=== PATIENT | female | born 1995 | race Hispanic/Latino ===

== ENCOUNTER 2016-04-13 17:00 | Emergency (ER) | payer SELFPAY ==
--- NOTE | 2016-04-13 18:55 | Emergency Department Report ---
Chief Complaint: Vaginal Bleeding Stated Complaint: / BLEEDING / CRAMPING Time Seen by Provider: 04/13/16 18:51 - HPI History of Present Illness: 20y/o female complain of heavy bleeding .pt state LMP Nov.pt had confirm through [facility] .pt state she has been through 3 tampon since 5p.pt state heavy vaginal bleeding at present . - ROS Review of Systems: per HPI - Exam Vital Signs: Vital Signs 04/13/16 18:10 Temperature 98.0 F Pulse Rate 81 Respiratory 16 Rate Blood Pressure 126/74 O2 Sat by Pulse 100 Oximetry Physical Exam: GENERAL: The patient is well-developed and well-nourished. Patient is in NAD. HENT: Normocephalic. Atraumatic. Patient has moist mucous membranes. Throat: No erythema, swelling or exudates. EYES: Extraocular motions are intact, PERRL NECK: Supple. No meningitic signs are noted. There is no adenopathy noted. CHEST/LUNGS: Clear to auscultation bilaterally. No wheezing, rales or rhonchi noted. There is no respiratory distress noted. HEART/CARDIOVASCULAR: Regular rate and rhythm. Normal S1 S2. No murmurs, rubs , clicks, or gallops. ABDOMEN: Abdomen is soft, nontender.. Bowel sounds normoactive. There is no abdominal distention. Negative rebound tenderness. : Deferred. SKIN: There is no rash. There is no edema. There is no diaphoresis. NEURO: The patient is A&Ox3. The patient has no focal neurologic deficits. MUSCULOSKELETAL: There is no tenderness or deformity. There is no limitation range of motion. PSYCH: Pt has appropriate mood and affect. MSE screening note: Focused history and physical exam performed. Due to findings the following was ordered: ED Disposition for MSE Condition: Stable
[2016-04-13 19:34] LABS: Basophils % (Auto) 0.3 % (0.0-1.8); Eosinophils % (Auto) 1.9 % (0.0-4.3); Hematocrit 36.3 % (30.3-42.9); Hemoglobin 12.3 gm/dl (10.1-14.3); Mean Corpuscular HGB Conc 34 % (30-34); Mean Corpuscular Hemoglobin 32 pg (28-32); Mean Corpuscular Volume 94 fl (79-97); Platelet Count 201 K/mm3 (140-440); Red Blood Count 3.86 M/mm3 (3.65-5.03); Red Cell Distribution Width 12.7 % (13.2-15.2); White Blood Count 9.1 K/mm3 (4.5-11.0)
[2016-04-13 19:52] LABS: Blood Urea Nitrogen 9 mg/dL (7-17); Calcium 8.5 mg/dL (8.4-10.2); Carbon Dioxide 24 mmol/L (22-30); Chloride 104.3 mmol/L (98-107); Glucose 91 mg/dL (65-100); Potassium 3.5 mmol/L (3.6-5.0); Sodium 142 mmol/L (137-145)
[2016-04-13 19:54] LABS: Anion Gap 17 mmol/L
--- NOTE | 2016-04-14 06:49 | Emergency Department Report ---
HPI - General Chief Complaint: Vaginal Bleeding Time Seen by Provider: 04/14/16 06:32 - HPI HPI: Chief complaint: Vaginal bleeding HPI: Patient states she had her last menstrual period the end of February and had a positive test. Patient has not had an ultrasound this before today. Patient states she started bleeding last night and passing clots. Patient states in the waiting room after her ultrasound she passed a sac. She collected this and it will be sent to pathology for POC evaluation. Patient is having slight bleeding now and minimal cramping. Mode of arrival: private car Source: Patient Began: Yesterday evening Duration: One day Context: Patient is 3 para 2 Quality: Cramping Severity: 7 out of 10 Improved with: Nothing Worsened with: Nothing Associated signs and symptoms: See above. No lightheadedness or vomiting ED Past Medical Hx - Past Medical History Additional medical history: anemia WITH - Surgical History Hx Cholecystectomy: Yes - Social History Smoking Status: Current Every Day Smoker Substance Use Type: None - Medications Home Medications: Home Medications Medication Instructions Recorded Confirmed Last Taken Type Ibuprofen [Motrin 600 MG tab] 600 mg PO Q8H PRN #20 tablet 04/14/16 Unknown Rx ED Review of Systems ROS: Stated complaint: / BLEEDING / CRAMPING Other details as noted in HPI ROS Constitutional: No fever ENT: No uri symptoms Cardiovascular: No chest pain Respiratory: No sob or cough GI: No nausea vomiting or diarrhea : No dysuria frequency or urgency, Skin: No rash Neuro: No focal weakness or numbness Psych: No depression Fede/lymph: No edema Physical Exam - Physical Exam Vital Signs: Vital Signs 04/13/16 04/14/16 18:10 05:09 Temperature 98.0 F 97.8 F Pulse Rate 81 80 Respiratory 16 20 Rate Blood Pressure 126/74 Blood Pressure 149/93 [Left] O2 Sat by Pulse 100 99 Oximetry Physical Exam: GENERAL: The patient is well-developed well-nourished . HEENT: Normocephalic. Atraumatic. Extraocular motions are intact. Patient has moist mucous membranes. NECK: Supple. No meningitic signs are noted. There is no adenopathy noted. CHEST/LUNGS: Clear to auscultation. There is no respiratory distress noted. HEART/CARDIOVASCULAR: Regular. There is no tachycardia. There is no gallop rub or murmur. ABDOMEN: Abdomen is soft, nontender. Patient has normal bowel sounds. There is no abdominal distention. : Os closed minimal bleeding. SKIN: There is no rash. There is no edema. There is no diaphoresis. NEURO: The patient is awake, alert, and oriented. The patient is cooperative. The patient has no focal neurologic deficits. The patient has normal speech. MUSCULOSKELETAL: There is no tenderness or deformity. There is no limitation range of motion. There is no evidence of acute injury. ED Course Vital Signs 04/13/16 04/14/16 18:10 05:09 Temperature 98.0 F 97.8 F Pulse Rate 81 80 Respiratory 16 20 Rate Blood Pressure 126/74 Blood Pressure 149/93 [Left] O2 Sat by Pulse 100 99 Oximetry - Reevaluation(s) Reevaluation #1: 04/14/16 06:48 Patient given a RhoGAM shot ED Medical Decision Making - Lab Data Result diagrams: 04/13/16 19:13 04/13/16 19:13 Laboratory Tests 04/13/16 04/13/16 04/13/16 19:13 19:13 19:20 Hgb 12.3 Hct 36.3 Plt Count 201 HCG, Quant 48056 H Blood Type O NEGATIVE Antibody Screen Negative - Radiology Data Radiology results: report reviewed (ultrasound shows a sac like structure in the lower uterine segment with no structures. No abnormal adnexal masses noted.) Critical care attestation.: If time is entered above; I have spent that time in minutes in the direct care of this critically ill patient, excluding procedure time. ED Disposition Clinical Impression: Spontaneous miscarriage Disposition: DISCHARGED TO HOME OR SELFCARE Is pt being admited?: No Does the pt Need Aspirin: No Condition: Stable Instructions: Spontaneous Miscarriage (ED) Prescriptions: Ibuprofen [Motrin 600 MG tab] 600 mg PO Q8H PRN #20 tablet PRN Reason: Pain Referrals: ROSANNA JAUREGUI MD [Staff Physician] - 3-5 Days (Dr. Jauregui is an [employer] for you to follow-up with next week) Time of Disposition: 07:44
[2016-04-14 08:04] VITALS: BP 102/40
--- NOTE | 2016-04-17 08:24 | Ultrasound Report ---
FINAL REPORT EXAM: US OB < = 14 WEEKS FETUS HISTORY: Vaginal bleeding TECHNIQUE: Transabdominal ultrasound pelvis PRIORS: None. FINDINGS: The uterus measures 9.74 x 5.7 x 6.6 centimeters. Endometrial thickness is 0.62 centimeters. Within the lower uterine segment there is an elongated ovoid saclike structure with echogenic hernandez. No structures identified. No abnormal adnexal mass identified. Right ovary is 3.3 x 1.7 x 2.4 centimeters Left ovary is 2.9 x 1.5 x 2.1 centimeters. No evidence for free fluid within the cul-de-sac. IMPRESSION: Sac-like structure within the lower uterus. No structures identified. Could reflect incomplete AB in progress versus occult ectopic . Continued followup recommended
== END 2016-04-14 08:05 | disposition home or self-care (01) ==
LOC: ED 17:00
DX: O03.9 Complete or unspecified spontaneous abortion without complication (principal); O99.331 Smoking (tobacco) complicating pregnancy, first trimester; Z3A.01 Less than 8 weeks gestation of pregnancy; Z90.49 Acquired absence of other specified parts of digestive tract
CPT/HCPCS: 36415; 76801; 80048; 84702; 85025; 86850; 86900; 86901; 88305; 99284; J2790

== ENCOUNTER 2018-07-22 20:05 | Inpatient (IN) | payer MEDICAID, OTHER ==
[2018-07-22] MEDS ORDERED: LACTATED RINGERS 1,000 ML IV ONE (21:01)
[2018-07-22 21:26] LABS: Bacteria,Urine 1+ /HPF (Negative); Bilirubin,Urine NEG (Negative); Blood,Urine MOD (Negative); Color,Urine Yellow (Yellow); Mucus,Urine FEW /HPF
[2018-07-22] MEDS ORDERED: COLACE PO PRN (23:02)
[2018-07-22] MEDS ORDERED: ZOFRAN IV PRN (23:02)
[2018-07-22] MEDS ORDERED: TYLENOL PO PRN (23:02)
[2018-07-22] MEDS ORDERED: ROCEPHIN/NS 1 GM/50 ML 1 GM/50 ML BAG IV SCH (23:30)
--- NOTE | 2018-07-22 23:52 | Ultrasound Report ---
PROCEDURE: US OB LIMITED TECHNIQUE: Real-time limited sonographic examination was performed for evaluation of amniotic fluid index for each fetus with image documentation (1 or more fetuses). HISTORY: franci COMPARISONS: None . FINDINGS: There is a single fetus in a vertex presentation. heart activity is identified at a rate 141 be ats from minute. The 4 quadrant amniotic fluid volume is 11.5 cm. No further measurements are obtaine d on this study. IMPRESSION: Single fetus in a vertex presentation. 4 quadrant amniotic fluid volume is 11.5 cm. This document is electronically signed by Shira Patten DO., July 22 2018 11:50:37 PM ET
--- NOTE | 2018-07-22 23:53 | Ultrasound Report ---
PROCEDURE: US OB BPP WO NON-STRESS TECHNIQUE: Sonographic evaluation for breathing, movement, tone, and amniotic flui d volume was performed. HISTORY: decreased movement COMPARISONS: None . FINDINGS: FETUS Amniotic fluid volume Normal-score 2. At least one vertical pocket >2 cm or more in vertical axis . breathing: Normal-score 2 . movement: Normal-score 2 . tone: Normal-score 2 . Score: 8 of 8 . IMPRESSION: Normal biophysical profile . This document is electronically signed by Shira Patten DO., July 22 2018 11:51:17 PM ET
[2018-07-23] MEDS: LACTATED RINGERS 1,000 ML IV SCH ×2 (00:12→15:09)
--- NOTE | 2018-07-23 00:36 | History and Physical Report ---
History of Present Illness Date of examination: 07/22/18 Date of admission: 07/22/18 23:21 Chief complaint: SIUP at 36 weeks and 6 days gestation with fever, back pain History of present illness: Patient is a 23 year old , LMP 11/06/17, EDC 08/13/18 at 36 weeks and 6 days who presented to triage complaining of having cough for 2 days, and developed a fever of 100.5F, chills, back pain, nausea earlier today. She denies any contractions, fluid leakage or bleeding. She reports decreased movement. She denies any chest pain or shortness of breath. She denies any sick contact at home. She did not get any flu shot this season. In triage, her temp was 99F. tracing was CAT1. Cervix closed. She was a late entry to [facility] at 22 weeks. Past History Past Surgical History: no surgical history Family/Genetic History: none Social history: no significant social history - Obstetrical History Expected Date of Delivery: 08/13/18 Actual Gestation: 37 Week(s) 0 Day(s) : 5 Para: 3 Number of Living Children: 3 Medications and Allergies Allergies Allergy/AdvReac Type Severity Reaction Status Date / Time No Known Allergies Allergy Verified 07/22/18 21:04 Active Meds: Active Medications Acetaminophen (Tylenol) 1,000 mg PO Q6H PRN PRN Reason: Pain MILD(1-3)/Fever >100.5/JALLOH Last Admin: 07/23/18 00:10 Dose: 1,000 mg Documented by: Docusate Sodium (Colace) 100 mg PO Q12H PRN PRN Reason: Constipation Lactated Ringer's (Lactated Ringers) 1,000 mls @ 125 mls/hr IV DIRECT MAXINE Last Admin: 07/23/18 00:12 Dose: 125 mls/hr Documented by: Ceftriaxone Sodium (Rocephin/Ns 1 Gm/50 Ml) 1 gm in 50 mls @ 100 mls/hr IV Q24HR MAXINE; Protocol Multivitamins/Iron/Calcium ( Vitamin) 1 each PO QDAY MAXINE Ondansetron HCl (Zofran) 4 mg IV Q6H PRN PRN Reason: Nausea And Vomiting Last Admin: 07/23/18 00:12 Dose: 4 mg Documented by: - Vital Signs Vital signs: Vital Signs Temp Resp 99.8 F H 20 07/22/18 20:29 07/22/18 20:29 Temp Pulse Resp BP Pulse Ox 99.9 F H 110 H 16 117/63 07/22/18 22:49 07/22/18 23:41 07/23/18 00:10 07/22/18 23:41 - Physical Exam Cardiovascular: Normal S1, Normal S2 Lungs: Positive: Clear to auscultation Vulva: both: normal Adnexa: both: normal Deep Tendon Reflex Grade: Normal +2 - Obstetrical FHR: category 1 Uterine Contraction Monitor Mode: External Cervical Dilatation: 0 Cervical Effacement Percentage: 0 station: -3 Uterine Contraction Pattern: Absent Results Result Diagrams: 07/23/18 00:24 07/23/18 00:24 Abnormal lab results 07/22/18 Range/Units 21:10 Ur Specific [place] 1.032 H (1.003-1.030) All other labs normal. Assessment and Plan - Patient Problems (1) 36 weeks gestation of Current Visit: Yes Status: Acute (2) Fever Current Visit: Yes Status: Acute Plan to address problem: Tylenol PRN. CBC, chem, urine and blood cultures, amylase, lipase, LFTs. Rapid Flu test. Sonogram for BPP, CHANDRAKANT (3) Pyelonephritis Current Visit: Yes Status: Acute Plan to address problem: Admit to labor floor. IV fluid. IV rocephin 1 gm Q24 hrs. Urine culture. No fever since admission. If any more fever spike, will send blood culture. (4) Cough Current Visit: Yes Status: Acute Plan to address problem: Will do chest X-ray. Guafenesin PRN.
[2018-07-23 00:49] LABS: Basophils % (Auto) 0.4 % (0.0-1.8); Eosinophils % (Auto) 0.7 % (0.0-4.3); Hematocrit 29.9 % (30.3-42.9); Hemoglobin 10.2 gm/dl (10.1-14.3); Lymphocytes # (Auto) 0.5 K/mm3 (1.2-5.4); Lymphocytes % (Auto) 8.9 % (13.4-35.0); Mean Corpuscular HGB Conc 34 % (30-34); Mean Corpuscular Volume 93 fl (79-97); Monocytes # (Auto) 0.6 K/mm3 (0.0-0.8); Monocytes % (Auto) 9.4 % (0.0-7.3); Platelet Count 118 K/mm3 (140-440); Red Blood Count 3.21 M/mm3 (3.65-5.03); Red Cell Distribution Width 14.5 % (13.2-15.2)
[2018-07-23 01:12] LABS: Alanine Aminotransferase 16 units/L (7-56); Alanine Aminotransferase 17 units/L (7-56); Albumin 3.1 g/dL (3.9-5); BUN/Creatinine Ratio 10; Blood Urea Nitrogen 4 mg/dL (7-17); Calcium 8.3 mg/dL (8.4-10.2); Hemolysis Index 5
[2018-07-23] MEDS: PHENERGAN/CODEINE 6.25-10 MG/5ML PO SCH ×3 (03:50→22:30)
[2018-07-23] MEDS: TAMIFLU PO SCH ×2 (06:30→20:00)
--- NOTE | 2018-07-23 09:29 | Progress Note ---
Assessment and Plan - Patient Problems (1) 36 weeks gestation of Current Visit: Yes Status: Acute (2) Pyelonephritis Current Visit: Yes Status: Acute Plan to address problem: Continue IV fluid. IV rocephin 1 gm Q24 hrs. Urine culture pending. No fever since admission. If any more fever spike, will send blood culture. (3) Cough Current Visit: Yes Status: Acute Plan to address problem: Chest X-ray pending. Guafenesin PRN. (4) Influenza Current Visit: Yes Status: Acute Plan to address problem: Continue Tamiflu. Subjective - Subjective Date of service: 07/23/18 Principal diagnosis: SIUP at 37 weeks gestation with fever, cough, back pain. Interval history: Patient is a 23 year old , LMP 11/06/17, EDC 08/13/18 at 37 weeks gestation who was admitted last night with fever of 100.5F at home, cough, back pain. Her temp was 99F on admission but her pulse was in the 110's. She was given IV fluid, tylenol, IV rocephin for presumed pyelonephritis. Labs were sent. Sonogran showed BPP 8/8. Rapid flu test is positive. She was started on Tamiflu 75 mg pO BID. Chest X-ray was ordered. She feels better now. tracing is CAT1. Objective - Vital Signs Vital Signs: Vital Signs - 12hr 07/22/18 07/22/18 07/22/18 21:35 21:49 22:03 Temperature Pulse Rate 111 H 114 H 108 H Respiratory Rate Blood Pressure 104/53 111/60 101/56 O2 Sat by Pulse Oximetry 07/22/18 07/22/18 07/22/18 22:19 22:33 22:49 Temperature 99.9 F H Pulse Rate 115 H 121 H 114 H Respiratory Rate Blood Pressure 127/79 122/72 132/69 O2 Sat by Pulse Oximetry 07/22/18 07/22/18 07/22/18 23:00 23:05 23:18 Temperature 99.6 F Pulse Rate 115 H 108 H Respiratory Rate Blood Pressure 134/71 126/68 O2 Sat by Pulse Oximetry 07/22/18 07/23/18 07/23/18 23:41 00:10 00:59 Temperature Pulse Rate 110 H 103 H Respiratory 16 Rate Blood Pressure 117/63 86/47 O2 Sat by Pulse Oximetry 07/23/18 07/23/18 07/23/18 01:10 01:11 01:12 Temperature Pulse Rate 101 H 99 H 99 H Respiratory Rate Blood Pressure 85/51 O2 Sat by Pulse 93 94 Oximetry 07/23/18 07/23/18 07/23/18 01:16 01:21 01:23 Temperature Pulse Rate 102 H 98 H 90 Respiratory Rate Blood Pressure 114/53 O2 Sat by Pulse 92 95 Oximetry 07/23/18 07/23/18 07/23/18 01:26 01:30 01:31 Temperature 98.8 F Pulse Rate 111 H 98 H Respiratory 20 Rate Blood Pressure O2 Sat by Pulse 94 96 Oximetry 07/23/18 07/23/18 07/23/18 01:36 01:41 01:46 Temperature Pulse Rate 116 H 106 H 114 H Respiratory Rate Blood Pressure O2 Sat by Pulse 97 97 94 Oximetry 07/23/18 07/23/18 07/23/18 01:51 01:56 02:01 Temperature Pulse Rate 101 H 92 H 98 H Respiratory Rate Blood Pressure O2 Sat by Pulse 95 94 95 Oximetry 07/23/18 07/23/18 07/23/18 02:06 02:11 02:16 Temperature Pulse Rate 98 H 93 H 96 H Respiratory Rate Blood Pressure O2 Sat by Pulse 92 91 94 Oximetry 07/23/18 07/23/18 07/23/18 02:21 02:26 02:31 Temperature Pulse Rate 94 H 88 105 H Respiratory Rate Blood Pressure O2 Sat by Pulse 94 89 95 Oximetry 07/23/18 07/23/18 07/23/18 02:32 02:36 02:41 Temperature Pulse Rate 100 H 89 104 H Respiratory Rate Blood Pressure O2 Sat by Pulse 88 93 93 Oximetry 07/23/18 07/23/18 07/23/18 02:46 02:51 02:56 Temperature Pulse Rate 89 90 84 Respiratory Rate Blood Pressure O2 Sat by Pulse 93 92 93 Oximetry 07/23/18 07/23/18 07/23/18 03:01 03:06 03:10 Temperature 98.3 F Pulse Rate 87 89 Respiratory 22 Rate Blood Pressure O2 Sat by Pulse 95 94 Oximetry 07/23/18 07/23/18 07/23/18 03:11 03:15 03:16 Temperature Pulse Rate 83 88 84 Respiratory Rate Blood Pressure O2 Sat by Pulse 94 89 92 Oximetry 07/23/18 07/23/18 07/23/18 03:21 03:26 03:31 Temperature Pulse Rate 83 87 84 Respiratory Rate Blood Pressure O2 Sat by Pulse 91 93 91 Oximetry 07/23/18 07/23/18 07/23/18 03:36 03:41 03:46 Temperature Pulse Rate 84 86 90 Respiratory Rate Blood Pressure O2 Sat by Pulse 94 94 93 Oximetry 07/23/18 07/23/18 07/23/18 03:51 03:56 04:05 Temperature Pulse Rate 90 94 H Respiratory Rate Blood Pressure O2 Sat by Pulse 95 97 99 Oximetry 07/23/18 07/23/18 07/23/18 04:10 04:15 04:20 Temperature Pulse Rate 91 H 85 89 Respiratory Rate Blood Pressure O2 Sat by Pulse 93 95 94 Oximetry 07/23/18 07/23/18 07/23/18 04:25 04:30 04:35 Temperature Pulse Rate 87 87 87 Respiratory Rate Blood Pressure O2 Sat by Pulse 94 94 94 Oximetry 07/23/18 07/23/18 07/23/18 04:40 04:45 04:50 Temperature Pulse Rate 84 85 88 Respiratory Rate Blood Pressure O2 Sat by Pulse 94 94 94 Oximetry 07/23/18 07/23/18 07/23/18 04:55 05:00 05:05 Temperature 98.0 F Pulse Rate 84 84 83 Respiratory 20 Rate Blood Pressure O2 Sat by Pulse 93 94 93 Oximetry 07/23/18 07/23/18 07/23/18 05:09 05:10 05:15 Temperature Pulse Rate 81 76 69 Respiratory Rate Blood Pressure 90/51 O2 Sat by Pulse 99 98 Oximetry 07/23/18 07/23/18 07/23/18 05:20 05:25 05:30 Temperature Pulse Rate 68 69 67 Respiratory Rate Blood Pressure O2 Sat by Pulse 99 100 99 Oximetry 07/23/18 07/23/18 07/23/18 05:40 05:45 05:50 Temperature Pulse Rate 73 76 81 Respiratory Rate Blood Pressure O2 Sat by Pulse 100 100 100 Oximetry 07/23/18 07/23/18 07/23/18 05:55 06:00 06:05 Temperature Pulse Rate 67 82 69 Respiratory Rate Blood Pressure O2 Sat by Pulse 100 100 100 Oximetry 07/23/18 07/23/18 07/23/18 06:10 06:15 06:20 Temperature Pulse Rate 69 68 86 Respiratory Rate Blood Pressure O2 Sat by Pulse 100 100 100 Oximetry 07/23/18 07/23/18 07/23/18 06:25 06:30 06:35 Temperature Pulse Rate 69 85 74 Respiratory Rate Blood Pressure O2 Sat by Pulse 100 100 100 Oximetry 07/23/18 07/23/18 07/23/18 06:40 06:45 06:50 Temperature Pulse Rate 77 89 83 Respiratory Rate Blood Pressure O2 Sat by Pulse 100 100 100 Oximetry 07/23/18 07/23/18 07/23/18 06:55 07:00 07:05 Temperature Pulse Rate 90 80 80 Respiratory Rate Blood Pressure O2 Sat by Pulse 100 100 100 Oximetry 07/23/18 07/23/18 07/23/18 07:10 07:15 07:20 Temperature Pulse Rate 68 75 76 Respiratory Rate Blood Pressure O2 Sat by Pulse 100 99 99 Oximetry 07/23/18 07/23/18 07/23/18 07:25 07:32 07:34 Temperature Pulse Rate 74 78 88 Respiratory Rate Blood Pressure 84/53 O2 Sat by Pulse 99 97 Oximetry 07/23/18 07/23/18 07/23/18 07:35 07:37 07:39 Temperature 98.0 F Pulse Rate 78 78 Respiratory 16 Rate Blood Pressure 98/57 O2 Sat by Pulse 96 Oximetry 07/23/18 07/23/18 07/23/18 07:44 07:49 07:54 Temperature Pulse Rate 81 77 81 Respiratory Rate Blood Pressure O2 Sat by Pulse 95 95 96 Oximetry 07/23/18 07/23/18 07/23/18 07:59 08:04 08:10 Temperature Pulse Rate 82 83 82 Respiratory Rate Blood Pressure O2 Sat by Pulse 95 96 95 Oximetry 07/23/18 07/23/18 07/23/18 08:15 08:20 08:25 Temperature Pulse Rate 87 89 88 Respiratory Rate Blood Pressure O2 Sat by Pulse 95 95 95 Oximetry 07/23/18 07/23/18 07/23/18 08:30 08:35 08:40 Temperature Pulse Rate 83 87 86 Respiratory Rate Blood Pressure O2 Sat by Pulse 96 95 98 Oximetry 07/23/18 07/23/18 07/23/18 08:45 08:50 08:55 Temperature Pulse Rate 82 85 88 Respiratory Rate Blood Pressure O2 Sat by Pulse 97 97 97 Oximetry 07/23/18 07/23/18 07/23/18 09:00 09:07 09:12 Temperature Pulse Rate 83 81 85 Respiratory Rate Blood Pressure O2 Sat by Pulse 97 100 98 Oximetry - Exam Cardiovascular: Normal S1, Normal S2 Lungs: Clear to auscultation Vulva: both: normal FHR: category 1 Uterine Contraction Monitor Mode: External Uterine Contraction Pattern: Absent Deep Tendon Reflex Grade: Normal +2 - Labs Labs: Abnormal Labs 07/22/18 07/23/18 07/23/18 21:10 00:24 00:24 RBC 3.21 L Hct 29.9 L Plt Count 118 L Lymph % (Auto) 8.9 L [place] % (Auto) 9.4 H Lymph # 0.5 L Seg Neutrophils % 80.6 H Sodium 135 L Carbon Dioxide 20 L BUN 4 L Creatinine 0.4 L Glucose 102 H Calcium 8.3 L Total Protein 5.8 L Albumin 3.1 L Ur Specific [place] 1.032 H Influenza B (Rapid) 07/23/18 Unknown RBC Hct Plt Count Lymph % (Auto) [place] % (Auto) Lymph # Seg Neutrophils % Sodium Carbon Dioxide BUN Creatinine Glucose Calcium Total Protein Albumin Ur Specific [place] Influenza B (Rapid) Positive A Laboratory Results - last 24 hr 07/22/18 07/23/18 07/23/18 21:10 00:24 00:24 WBC RBC Hgb Hct MCV MCH MCHC RDW Plt Count Lymph % (Auto) [place] % (Auto) Eos % (Auto) Baso % (Auto) Lymph # [place] # Eos # Baso # Seg Neutrophils % Seg Neutrophils # Sodium Potassium Chloride Carbon Dioxide Anion Gap BUN Creatinine Estimated GFR BUN/Creatinine Ratio Glucose Calcium Magnesium Total Bilirubin AST 23 ALT 17 Alkaline Phosphatase Total Protein Albumin Albumin/Globulin Ratio Amylase 39 Lipase 20 TSH Free T4 Urine Color Yellow Urine Turbidity Clear Urine pH 6.0 Ur Specific [place] 1.032 H Urine Protein 30 mg/dl Urine Glucose (UA) Neg Urine Ketones 20 Urine Blood Mod Urine Nitrite Neg Urine Bilirubin Neg Urine Urobilinogen 4.0 Ur Leukocyte Esterase Neg Urine WBC (Auto) 2.0 Urine RBC (Auto) 6.0 U Epithel Cells (Auto) 1.0 Urine Bacteria (Auto) 1+ Urine Mucus Few Influenza A (Rapid) Influenza B (Rapid) Blood Type Antibody Screen 07/23/18 07/23/1807/23/19 00:24 00:24 00:24 WBC 5.9 RBC 3.21 L Hgb 10.2 Hct 29.9 L MCV 93 MCH 32 MCHC 34 RDW 14.5 Plt Count 118 L Lymph % (Auto) 8.9 L [place] % (Auto) 9.4 H Eos % (Auto) 0.7 Baso % (Auto) 0.4 Lymph # 0.5 L [place] # 0.6 Eos # 0.0 Baso # 0.0 Seg Neutrophils % 80.6 H Seg Neutrophils # 4.8 Sodium 135 L Potassium 3.6 Chloride 101.6 Carbon Dioxide 20 L Anion Gap 17 BUN 4 L Creatinine 0.4 L Estimated GFR > 60 BUN/Creatinine Ratio 10 Glucose 102 H Calcium 8.3 L Magnesium Total Bilirubin 0.30 AST 24 ALT 16 Alkaline Phosphatase 88 Total Protein 5.8 L Albumin 3.1 L Albumin/Globulin Ratio 1.1 Amylase Lipase TSH Free T4 Urine Color Urine Turbidity Urine pH Ur Specific [place] Urine Protein Urine Glucose (UA) Urine Ketones Urine Blood Urine Nitrite Urine Bilirubin Urine Urobilinogen Ur Leukocyte Esterase Urine WBC (Auto) Urine RBC (Auto) U Epithel Cells (Auto) Urine Bacteria (Auto) Urine Mucus Influenza A (Rapid) Influenza B (Rapid) Blood Type O NEGATIVE Antibody Screen Negative 07/23/18 07/23/18 07/23/18 00:40 00:40 05:49 WBC RBC Hgb Hct MCV MCH MCHC RDW Plt Count Lymph % (Auto) [place] % (Auto) Eos % (Auto) Baso % (Auto) Lymph # [place] # Eos # Baso # Seg Neutrophils % Seg Neutrophils # Sodium Potassium Chloride Carbon Dioxide Anion Gap BUN Creatinine Estimated GFR BUN/Creatinine Ratio Glucose Calcium Magnesium 1.70 Total Bilirubin AST ALT Alkaline Phosphatase Total Protein Albumin Albumin/Globulin Ratio Amylase Lipase TSH 1.040 Free T4 0.85 Urine Color Urine Turbidity Urine pH Ur Specific [place] Urine Protein Urine Glucose (UA) Urine Ketones Urine Blood Urine Nitrite Urine Bilirubin Urine Urobilinogen Ur Leukocyte Esterase Urine WBC (Auto) Urine RBC (Auto) U Epithel Cells (Auto) Urine Bacteria (Auto) Urine Mucus Influenza A (Rapid) Influenza B (Rapid) Blood Type Antibody Screen 07/23/18 Unknown WBC RBC Hgb Hct MCV MCH MCHC RDW Plt Count Lymph % (Auto) [place] % (Auto) Eos % (Auto) Baso % (Auto) Lymph # [place] # Eos # Baso # Seg Neutrophils % Seg Neutrophils # Sodium Potassium Chloride Carbon Dioxide Anion Gap BUN Creatinine Estimated GFR BUN/Creatinine Ratio Glucose Calcium Magnesium Total Bilirubin AST ALT Alkaline Phosphatase Total Protein Albumin Albumin/Globulin Ratio Amylase Lipase TSH Free T4 Urine Color Urine Turbidity Urine pH Ur Specific [place] Urine Protein Urine Glucose (UA) Urine Ketones Urine Blood Urine Nitrite Urine Bilirubin Urine Urobilinogen Ur Leukocyte Esterase Urine WBC (Auto) Urine RBC (Auto) U Epithel Cells (Auto) Urine Bacteria (Auto) Urine Mucus Influenza A (Rapid) Negative Influenza B (Rapid) Positive A Blood Type Antibody Screen - Results US- obstetric: report reviewed
[2018-07-23] MEDS ORDERED: ROCEPHIN/NS 1 GM/50 ML 1 GM/50 ML BAG IV SCH ×2 (10:00→23:58)
--- NOTE | 2018-07-23 10:52 | XRay Report ---
AP CHEST: HISTORY: Fever, cough AP view of the chest demonstrates a normal mediastinal and cardiac contour with clear lungs and normal bony and soft tissue structures. IMPRESSION: Unremarkable AP chest.
[2018-07-23] MEDS: TYLENOL PO PRN ×2 (11:35→17:38)
[2018-07-23] MEDS: PRENATAL VITAMIN PO SCH (11:36)
--- NOTE | 2018-07-23 19:41 | Progress Note ---
Assessment and Plan A: SIUP 37w0d Influenza Category 1 tracing Previous CHANDRAKANT 11cm To pt room per request of oncoming RN. Reports pt states she has been "leaking fluid since yesterday" and "day shift nurse had a positive nitrazine" Upon talking to pt she is uncertain if she is leaking or not. Pt states, "that she knows that she is urinating on herself when she coughs." SVE with no [place]. Baby is ballotable. No fluid noted with exam. P: Will get repeat CHANDRAKANT and continue to monitor. Subjective - Subjective Date of service: 07/23/18 Principal diagnosis: SIUP at 37 weeks gestation; Influenza Interval history: See H&P Patient reports: loss of fluid (urinating with coughing), movement normal, no vaginal bleeding, no contractions Objective - Vital Signs Vital Signs: Vital Signs - 12hr 07/23/18 07/23/18 07/23/18 07:34 07:35 07:37 Temperature 98.0 F Pulse Rate 88 78 Respiratory 16 Rate Blood Pressure 98/57 Blood Pressure [Right] O2 Sat by Pulse 97 Oximetry 07/23/18 07/23/18 07/23/18 07:39 07:44 07:49 Temperature Pulse Rate 78 81 77 Respiratory Rate Blood Pressure Blood Pressure [Right] O2 Sat by Pulse 96 95 95 Oximetry 07/23/18 07/23/18 07/23/18 07:54 07:59 08:04 Temperature Pulse Rate 81 82 83 Respiratory Rate Blood Pressure Blood Pressure [Right] O2 Sat by Pulse 96 95 96 Oximetry 07/23/18 07/23/18 07/23/18 08:10 08:15 08:20 Temperature Pulse Rate 82 87 89 Respiratory Rate Blood Pressure Blood Pressure [Right] O2 Sat by Pulse 95 95 95 Oximetry 07/23/18 07/23/18 07/23/18 08:25 08:30 08:35 Temperature Pulse Rate 88 83 87 Respiratory Rate Blood Pressure Blood Pressure [Right] O2 Sat by Pulse 95 96 95 Oximetry 07/23/18 07/23/18 07/23/18 08:40 08:45 08:50 Temperature Pulse Rate 86 82 85 Respiratory Rate Blood Pressure Blood Pressure [Right] O2 Sat by Pulse 98 97 97 Oximetry 07/23/18 07/23/18 07/23/18 08:55 09:00 09:07 Temperature Pulse Rate 88 83 81 Respiratory Rate Blood Pressure Blood Pressure [Right] O2 Sat by Pulse 97 97 100 Oximetry 07/23/18 07/23/18 07/23/18 09:12 11:15 11:35 Temperature 100.0 F H Pulse Rate 85 Respiratory 18 18 Rate Blood Pressure Blood Pressure [Right] O2 Sat by Pulse 98 Oximetry 07/23/18 07/23/18 07/23/18 11:39 12:00 16:22 Temperature 99.3 F Pulse Rate 99 H 95 H Respiratory Rate Blood Pressure 121/81 117/57 Blood Pressure [Right] O2 Sat by Pulse 100 100 Oximetry 07/23/18 07/23/18 07/23/18 17:30 18:25 18:26 Temperature 100.8 F H Pulse Rate 107 H 109 H Respiratory 22 Rate Blood Pressure 128/72 Blood Pressure [Right] O2 Sat by Pulse 99 Oximetry 07/23/18 07/23/18 07/23/18 18:30 18:35 18:40 Temperature 101.9 F H Pulse Rate 113 H 118 H 115 H Respiratory Rate Blood Pressure Blood Pressure [Right] O2 Sat by Pulse 97 98 96 Oximetry 07/23/18 07/23/18 07/23/18 18:45 18:48 18:50 Temperature Pulse Rate 113 H 117 H 108 H Respiratory Rate Blood Pressure Blood Pressure [Right] O2 Sat by Pulse 98 93 96 Oximetry 07/23/18 07/23/18 07/23/18 18:55 19:00 19:05 Temperature Pulse Rate 116 H 114 H 104 H Respiratory Rate Blood Pressure Blood Pressure [Right] O2 Sat by Pulse 96 95 95 Oximetry 07/23/18 07/23/18 07/23/18 19:10 19:15 19:20 Temperature Pulse Rate 118 H 112 H 109 H Respiratory Rate Blood Pressure Blood Pressure [Right] O2 Sat by Pulse 98 98 96 Oximetry 07/23/18 07/23/18 19:25 19:30 Temperature 100.6 F H Pulse Rate 99 H 110 H Respiratory 18 Rate Blood Pressure 117/56 Blood Pressure 117/56 [Right] O2 Sat by Pulse 98 95 Oximetry - Exam Abdomen: Present: soft, normal bowel sounds, other (Gravid). Absent: distention, tenderness Vulva: both: normal Uterus: Present: other (Gravid) FHR: category 1 Uterine Contraction Monitor Mode: External Cervical Dilatation: 2 (outer os 3cm) Cervical Effacement Percentage: 50 station: -4 Uterine Contraction Frequency (min): occasional Uterine Tone Measurement Phase: Resting Uterine Contraction Intensity: Mild Extremities: normal - Labs Labs: Abnormal Labs 07/22/18 07/23/18 07/23/18 21:10 00:24 00:24 RBC 3.21 L Hct 29.9 L Plt Count 118 L Lymph % (Auto) 8.9 L [place] % (Auto) 9.4 H Lymph # 0.5 L Seg Neutrophils % 80.6 H Sodium 135 L Carbon Dioxide 20 L BUN 4 L Creatinine 0.4 L Glucose 102 H Calcium 8.3 L Total Protein 5.8 L Albumin 3.1 L Ur Specific [place] 1.032 H Influenza B (Rapid) 07/23/18 Unknown RBC Hct Plt Count Lymph % (Auto) [place] % (Auto) Lymph # Seg Neutrophils % Sodium Carbon Dioxide BUN Creatinine Glucose Calcium Total Protein Albumin Ur Specific [place] Influenza B (Rapid) Positive A Laboratory Results - last 24 hr 07/22/18 07/23/18 07/23/18 21:10 00:24 00:24 WBC RBC Hgb Hct MCV MCH MCHC RDW Plt Count Lymph % (Auto) [place] % (Auto) Eos % (Auto) Baso % (Auto) Lymph # [place] # Eos # Baso # Seg Neutrophils % Seg Neutrophils # Sodium Potassium Chloride Carbon Dioxide Anion Gap BUN Creatinine Estimated GFR BUN/Creatinine Ratio Glucose Calcium Magnesium Total Bilirubin AST 23 ALT 17 Alkaline Phosphatase Total Protein Albumin Albumin/Globulin Ratio Amylase 39 Lipase 20 TSH Free T4 Urine Color Yellow Urine Turbidity Clear Urine pH 6.0 Ur Specific [place] 1.032 H Urine Protein 30 mg/dl Urine Glucose (UA) Neg Urine Ketones 20 Urine Blood Mod Urine Nitrite Neg Urine Bilirubin Neg Urine Urobilinogen 4.0 Ur Leukocyte Esterase Neg Urine WBC (Auto) 2.0 Urine RBC (Auto) 6.0 U Epithel Cells (Auto) 1.0 Urine Bacteria (Auto) 1+ Urine Mucus Few Influenza A (Rapid) Influenza B (Rapid) Blood Type Antibody Screen 07/23/18 07/23/18 07/23/18 00:24 00:24 00:24 WBC 5.9 RBC 3.21 L Hgb 10.2 Hct 29.9 L MCV 93 MCH 32 MCHC 34 RDW 14.5 Plt Count 118 L Lymph % (Auto) 8.9 L [place] % (Auto) 9.4 H Eos % (Auto) 0.7 Baso % (Auto) 0.4 Lymph # 0.5 L [place] # 0.6 Eos # 0.0 Baso # 0.0 Seg Neutrophils % 80.6 H Seg Neutrophils # 4.8 Sodium 135 L Potassium 3.6 Chloride 101.6 Carbon Dioxide 20 L Anion Gap 17 BUN 4 L Creatinine 0.4 L Estimated GFR > 60 BUN/Creatinine Ratio 10 Glucose 102 H Calcium 8.3 L Magnesium Total Bilirubin 0.30 AST 24 ALT 16 Alkaline Phosphatase 88 Total Protein 5.8 L Albumin 3.1 L Albumin/Globulin Ratio 1.1 Amylase Lipase TSH Free T4 Urine Color Urine Turbidity Urine pH Ur Specific [place] Urine Protein Urine Glucose (UA) Urine Ketones Urine Blood Urine Nitrite Urine Bilirubin Urine Urobilinogen Ur Leukocyte Esterase Urine WBC (Auto) Urine RBC (Auto) U Epithel Cells (Auto) Urine Bacteria (Auto) Urine Mucus Influenza A (Rapid) Influenza B (Rapid) Blood Type O NEGATIVE Antibody Screen Negative 07/23/18 07/23/18 07/23/18 00:40 00:40 05:49 WBC RBC Hgb Hct MCV MCH MCHC RDW Plt Count Lymph % (Auto) [place] % (Auto) Eos % (Auto) Baso % (Auto) Lymph # [place] # Eos # Baso # Seg Neutrophils % Seg Neutrophils # Sodium Potassium Chloride Carbon Dioxide Anion Gap BUN Creatinine Estimated GFR BUN/Creatinine Ratio Glucose Calcium Magnesium 1.70 Total Bilirubin AST ALT Alkaline Phosphatase Total Protein Albumin Albumin/Globulin Ratio Amylase Lipase TSH 1.040 Free T4 0.85 Urine Color Urine Turbidity Urine pH Ur Specific [place] Urine Protein Urine Glucose (UA) Urine Ketones Urine Blood Urine Nitrite Urine Bilirubin Urine Urobilinogen Ur Leukocyte Esterase Urine WBC (Auto) Urine RBC (Auto) U Epithel Cells (Auto) Urine Bacteria (Auto) Urine Mucus Influenza A (Rapid) Influenza B (Rapid) Blood Type Antibody Screen 07/23/18 Unknown WBC RBC Hgb Hct MCV MCH MCHC RDW Plt Count Lymph % (Auto) [place] % (Auto) Eos % (Auto) Baso % (Auto) Lymph # [place] # Eos # Baso # Seg Neutrophils % Seg Neutrophils # Sodium Potassium Chloride Carbon Dioxide Anion Gap BUN Creatinine Estimated GFR BUN/Creatinine Ratio Glucose Calcium Magnesium Total Bilirubin AST ALT Alkaline Phosphatase Total Protein Albumin Albumin/Globulin Ratio Amylase Lipase TSH Free T4 Urine Color Urine Turbidity Urine pH Ur Specific [place] Urine Protein Urine Glucose (UA) Urine Ketones Urine Blood Urine Nitrite Urine Bilirubin Urine Urobilinogen Ur Leukocyte Esterase Urine WBC (Auto) Urine RBC (Auto) U Epithel Cells (Auto) Urine Bacteria (Auto) Urine Mucus Influenza A (Rapid) Negative Influenza B (Rapid) Positive A Blood Type Antibody Screen
--- NOTE | 2018-07-23 21:14 | Ultrasound Report ---
PROCEDURE: US OB LIMITED TECHNIQUE: Real-time limited sonographic examination was performed for evaluation of for each fetus with image documentation (1 or more fetuses). HISTORY: CHANDRAKANT COMPARISONS: None . FINDINGS: FETUS IUP: Single living intrauterine . Position: Cephalic . Placental position: Fundal, without previa . Amniotic fluid volume: Normal. Amniotic fluid index is 11.1 cm Heart rate and rhythm: 145 BPM, Regular . IMPRESSION: Amniotic fluid index 11.1 cm This document is electronically signed by Valeriy Contreras MD., July 23 2018 09:12:22 PM ET
[2018-07-23] MEDS: ROCEPHIN/NS 1 GM/50 ML 1 GM/50 ML BAG IV SCH (23:37)
[2018-07-24] MEDS: LACTATED RINGERS 1,000 ML IV SCH ×3 (01:00→18:28)
--- NOTE | 2018-07-24 09:53 | Progress Note ---
Assessment and Plan - Patient Problems (1) 36 weeks gestation of Current Visit: Yes Status: Acute Plan to address problem: status reassurring. Continue external monitoring. (2) Influenza Current Visit: Yes Status: Acute Plan to address problem: Continue antibiotics. Will remain inpatient until 24hrs afebrile. Subjective - Subjective Principal diagnosis: SIUP at 37 weeks gestation; Influenza Interval history: Patient feels improved. She is coughing and reports loss of fluid with movement and increased intraabdominal pressure. Instructed to wear pad to quantify fluid. CHANDRAKANT remains 11-12 on ultrasound. She reports good movement and no vaginal bleeding. Her last elevated temperature was 07/23 at 1930. Patient reports: loss of fluid (urinating with coughing), movement normal, no vaginal bleeding, no contractions Objective - Vital Signs Vital Signs: Vital Signs - 12hr 07/23/18 07/24/18 07/24/18 23:37 03:52 08:18 Temperature 99.8 F H Pulse Rate 96 H 99 H 109 H Respiratory 16 18 Rate Blood Pressure 98/47 118/68 Blood Pressure 98/47 118/68 [Right] O2 Sat by Pulse 94 Oximetry 07/24/18 07/24/18 07/24/18 08:19 08:20 08:24 Temperature 99.2 F Pulse Rate 107 H 94 H 83 Respiratory 16 Rate Blood Pressure 117/63 Blood Pressure 117/63 [Right] O2 Sat by Pulse 94 94 Oximetry 07/24/18 07/24/18 07/24/18 08:29 08:35 08:40 Temperature Pulse Rate 105 H 109 H 106 H Respiratory Rate Blood Pressure Blood Pressure [Right] O2 Sat by Pulse 94 96 96 Oximetry 07/24/18 07/24/18 07/24/18 08:45 08:50 08:55 Temperature Pulse Rate 112 H 101 H 97 H Respiratory Rate Blood Pressure Blood Pressure [Right] O2 Sat by Pulse 97 94 93 Oximetry 07/24/18 07/24/18 07/24/18 09:00 09:04 09:05 Temperature Pulse Rate 105 H 115 H 107 H Respiratory Rate Blood Pressure Blood Pressure [Right] O2 Sat by Pulse 95 92 94 Oximetry 07/24/18 07/24/18 07/24/18 09:10 09:15 09:20 Temperature Pulse Rate 102 H 111 H 108 H Respiratory Rate Blood Pressure Blood Pressure [Right] O2 Sat by Pulse 93 95 94 Oximetry - Labs Labs: Abnormal Labs 07/22/18 07/23/18 07/23/18 21:10 00:24 00:24 RBC 3.21 L Hct 29.9 L Plt Count 118 L Lymph % (Auto) 8.9 L [place] % (Auto) 9.4 H Lymph # 0.5 L Seg Neutrophils % 80.6 H Sodium 135 L Carbon Dioxide 20 L BUN 4 L Creatinine 0.4 L Glucose 102 H Calcium 8.3 L Total Protein 5.8 L Albumin 3.1 L Ur Specific [place] 1.032 H Influenza B (Rapid) 07/23/18 Unknown RBC Hct Plt Count Lymph % (Auto) [place] % (Auto) Lymph # Seg Neutrophils % Sodium Carbon Dioxide BUN Creatinine Glucose Calcium Total Protein Albumin Ur Specific [place] Influenza B (Rapid) Positive A
[2018-07-24] MEDS: PRENATAL VITAMIN PO SCH (10:22)
[2018-07-24] MEDS: TAMIFLU PO SCH ×2 (10:23→23:22)
[2018-07-24] MEDS: PHENERGAN/CODEINE 6.25-10 MG/5ML PO SCH ×2 (19:19→23:23)
[2018-07-24] MEDS: ROCEPHIN/NS 1 GM/50 ML 1 GM/50 ML BAG IV SCH (23:25)
[2018-07-25] MEDS: LACTATED RINGERS 1,000 ML IV SCH ×2 (05:35→15:27)
--- NOTE | 2018-07-25 08:28 | Progress Note ---
Assessment and Plan - Patient Problems (1) 36 weeks gestation of Current Visit: Yes Status: Acute Plan to address problem: status reassurring. Continue external monitoring. (2) Influenza Current Visit: Yes Status: Acute Plan to address problem: Temperature trending down. Highest temp 99.8. Willl keep inpatient until temp <99 for 24hrs. Continue 5 day course of Tamiflu. Subjective - Subjective Principal diagnosis: SIUP at 37 weeks gestation; Influenza Interval history: Patient feels improved. She is coughing and reports loss of fluid with movement and increased intraabdominal pressure. Instructed to wear pad to quantify fl uid. CHANDRAKANT remains 11-12 on ultrasound. She reports good movement and no vaginal bleeding. Her last elevated temperature was 07/23 at 1930. Patient reports: loss of fluid (urinating with coughing), movement normal, no vaginal bleeding, no contractions Objective - Vital Signs Vital Signs: Vital Signs - 12hr 07/24/18 07/24/18 07/25/18 23:20 23:37 05:39 Temperature 99 F 98.8 F Pulse Rate 96 H 96 H 85 Respiratory 18 18 Rate Blood Pressure 100/53 100/54 Blood Pressure 100/53 100/54 [Right] O2 Sat by Pulse 92 97 Oximetry 07/25/18 07/25/18 07/25/18 05:40 05:45 05:50 Temperature Pulse Rate 85 92 H 89 Respiratory Rate Blood Pressure Blood Pressure [Right] O2 Sat by Pulse 93 91 94 Oximetry 07/25/18 07/25/18 07/25/18 05:55 06:00 06:05 Temperature Pulse Rate 85 92 H 93 H Respiratory Rate Blood Pressure Blood Pressure [Right] O2 Sat by Pulse 89 90 91 Oximetry 07/25/18 07/25/18 07/25/18 06:10 06:15 06:16 Temperature Pulse Rate 92 H 93 H Respiratory Rate Blood Pressure Blood Pressure [Right] O2 Sat by Pulse 91 90 92 Oximetry 07/25/18 07/25/18 07/25/18 06:20 06:23 06:25 Temperature Pulse Rate 91 H 104 H 101 H Respiratory Rate Blood Pressure Blood Pressure [Right] O2 Sat by Pulse 92 94 91 Oximetry 07/25/18 07/25/18 07/25/18 06:29 06:30 06:35 Temperature Pulse Rate 89 94 H 86 Respiratory Rate Blood Pressure Blood Pressure [Right] O2 Sat by Pulse 91 88 89 Oximetry 07/25/18 07/25/18 07/25/18 06:40 06:45 06:50 Temperature Pulse Rate 92 H 95 H 93 H Respiratory Rate Blood Pressure Blood Pressure [Right] O2 Sat by Pulse 92 92 91 Oximetry 07/25/18 07/25/18 07/25/18 06:55 07:00 07:05 Temperature Pulse Rate 89 94 H 107 H Respiratory Rate Blood Pressure Blood Pressure [Right] O2 Sat by Pulse 91 90 93 Oximetry 07/25/18 07/25/18 07/25/18 07:08 07:10 07:28 Temperature Pulse Rate 96 H 97 H 96 H Respiratory Rate Blood Pressure Blood Pressure [Right] O2 Sat by Pulse 94 93 96 Oximetry 07/25/18 07/25/18 07/25/18 07:29 07:33 07:38 Temperature Pulse Rate 103 H 93 H 90 Respiratory Rate Blood Pressure Blood Pressure [Right] O2 Sat by Pulse 94 93 91 Oximetry 07/25/18 07/25/18 07/25/18 07:43 07:46 07:48 Temperature Pulse Rate 90 89 93 H Respiratory Rate Blood Pressure Blood Pressure [Right] O2 Sat by Pulse 91 94 91 Oximetry 07/25/18 07/25/18 07/25/18 07:53 07:58 08:03 Temperature Pulse Rate 85 86 90 Respiratory Rate Blood Pressure Blood Pressure [Right] O2 Sat by Pulse 90 91 91 Oximetry 07/25/18 07/25/18 07/25/18 08:08 08:12 08:13 Temperature Pulse Rate 91 H 86 90 Respiratory Rate Blood Pressure 94/50 Blood Pressure [Right] O2 Sat by Pulse 91 92 Oximetry 07/25/18 07/25/18 07/25/18 08:17 08:18 08:23 Temperature 98.3 F Pulse Rate 84 93 H Respiratory 20 Rate Blood Pressure Blood Pressure [Right] O2 Sat by Pulse 90 91 Oximetry - Labs Labs: Abnormal Labs 07/22/18 07/23/18 07/23/18 21:10 00:24 00:24 RBC 3.21 L Hct 29.9 L Plt Count 118 L Lymph % (Auto) 8.9 L [place] % (Auto) 9.4 H Lymph # 0.5 L Seg Neutrophils % 80.6 H Sodium 135 L Carbon Dioxide 20 L BUN 4 L Creatinine 0.4 L Glucose 102 H Calcium 8.3 L Total Protein 5.8 L Albumin 3.1 L Ur Specific [place] 1.032 H Influenza B (Rapid) 07/23/18 Unknown RBC Hct Plt Count Lymph % (Auto) [place] % (Auto) Lymph # Seg Neutrophils % Sodium Carbon Dioxide BUN Creatinine Glucose Calcium Total Protein Albumin Ur Specific [place] Influenza B (Rapid) Positive A
[2018-07-25] MEDS: PRENATAL VITAMIN PO SCH (10:12)
[2018-07-25] MEDS: TAMIFLU PO SCH ×4 (10:12→22:45)
[2018-07-25] MEDS: PHENERGAN/CODEINE 6.25-10 MG/5ML PO SCH ×2 (10:13→22:25)
[2018-07-25] MEDS: TYLENOL PO PRN (19:55)
[2018-07-25] MEDS: ROCEPHIN/NS 1 GM/50 ML 1 GM/50 ML BAG IV SCH (22:45)
[2018-07-26] MEDS: TAMIFLU PO SCH (11:36)
[2018-07-26] MEDS: PHENERGAN/CODEINE 6.25-10 MG/5ML PO SCH (11:36)
[2018-07-26] MEDS: PRENATAL VITAMIN PO SCH (11:41)
[2018-07-26 11:46] VITALS: BP 114/70
--- NOTE | 2018-07-26 14:04 | Discharge Summary ---
Providers - Providers Date of Admission: 07/23/18 09:14 Attending physician: NEGRA BURRIS MD Primary care physician: NEGRA BURRIS MD Hospitalization Reason for admission: other (fever, cough, upper respiratory symptoms) Delivery: other (undelivered) Discharge diagnosis: other (Influenza) Hospital course: 23yo at 37 3/7 weeks was admitted for systemic inflammatory response and noted to have Influenza B. She was treated with Tamiflu and noted to have marked improvement at discharge and was afebrile x 48hrs at discharge. Condition at discharge: Stable Disposition: DC-01 TO HOME OR SELFCARE - Discharge Diagnoses (1) 36 weeks gestation of Status: Acute Comment: status reassurring. (2) Influenza Status: Acute Comment: Continue Tamiflu to finish 5 day course. Plan - Discharge Medications Prescriptions: Oseltamivir Phosphate [Tamiflu] 75 mg PO BID 3 Days #6 capsule - Provider Discharge Summary Diet: routine Additional instructions: [] Smoking cessation referral if applicable(refer to patient education folder for contact #) [] Refer to [facility] Booklet Call your doctor immediately for: * Fever > 100.5 * Vaginal bleeding ( >1 pad per hour) * Severe persistent headache * Shortness of breath * Decreased movement * Loss of fluid - Follow up plan Follow up: NEGRA BURRIS MD [Primary Care Provider] - 7 Days Forms: Discharge Signature Page
== END 2018-07-26 15:15 | disposition home or self-care (01) | DRG 781 ==
LOC: TRG 20:05 → LD 23:21 → OBSVTOIN 07-23 09:14
PROVIDERS: ADMIT Obstetrics & Gynecology; ATTEND Obstetrics & Gynecology
DX: O23.03 Infections of kidney in pregnancy, third trimester (principal); O98.813 Other maternal infectious and parasitic diseases complicating pregnancy, third trimester; J11.1 Influenza due to unidentified influenza virus with other respiratory manifestations; R65.10 Systemic inflammatory response syndrome (SIRS) of non-infectious origin without acute organ dysfunction; Z3A.36 36 weeks gestation of pregnancy
CPT/HCPCS: 36415; 71045; 76815; 76819; 80053; 81001; 82150; 83690; 83735; 84439; 84443; 84450; 84460; 85025; 86850; 86900; 86901; 87086; 87400; G0378; J0696; J2405; J7120

== ENCOUNTER 2018-08-05 21:36 | Outpatient (CLI) | payer MEDICAID ==
[2018-08-06 00:14] VITALS: BP 110/73
[2018-08-06] MEDS ORDERED: ROBITUSSIN PO PRN (00:22)
[2018-08-06 02:07] LABS: Bacteria,Urine 1+ /HPF (Negative); Bilirubin,Urine NEG (Negative); Blood,Urine NEG (Negative); Color,Urine Yellow (Yellow); Protein,Urine <15 mg/dL mg/dL (Negative)
--- NOTE | 2018-08-24 09:22 | Event Note ---
Date: 08/24/18 Received call from patient 08/22/2018 reporting no home health agency presented to infuse her IV antibiotics. IV antibiotics were sent but she did not receive any teach and train or flushes of her PICC line. She attempted to call the agency and they reported they were contracted for once-a-week basis and that would happen on Friday or Friday. After she told me this, I told her to come to the ED for re-admission and restart her IV antibiotics. Patient's mother then called me upset and expressed the intent to fredy. I called back the patient today and spoke with her partner, she was at home, she wanted to remove the PICC and he reported nobody showed up yet. I told him again for her to come to the ED for evaluation and PICC removal and ID clinic f/u on Friday so I can assess / repeat blood culture etc. He said he would talk to her.
== END 2018-08-06 01:41 | disposition home or self-care (01) ==
LOC: TRG 21:36
PROVIDERS: ATTEND Obstetrics & Gynecology
DX: O62.8 Other abnormalities of forces of labor (principal); O26.893 Other specified pregnancy related conditions, third trimester; M54.9 Dorsalgia, unspecified; Z90.49 Acquired absence of other specified parts of digestive tract; Z3A.39 39 weeks gestation of pregnancy
CPT/HCPCS: 81001

== ENCOUNTER 2018-08-24 11:55 | Emergency (ER) | payer MEDICAID ==
--- NOTE | 2018-08-24 12:09 | Emergency Department Report ---
Blank Doc - Documentation Documentation: This is a 23-year-old female that presents with right arm picc line removal. Patient was sent by Dr. Sifuentes (infection disease). This initial assessment/diagnostic orders/clinical plan/treatment(s) is/are subject to change based on patient's health status, clinical progression and re- assessment by fellow clinical providers in the ED. Further treatment and workup at subsequent clinical providers discretion. Patient/guardians urged not to elope from the ED as their condition may be serious if not clinically assessed and managed. Initial orders include: 1- Patient sent to MAIN ED for further evaluation and treatment. 2- IV nurse to seen patient
[2018-08-24 12:11] VITALS: BP 133/80
--- NOTE | 2018-08-24 14:27 | Emergency Department Report ---
Chief Complaint: Medical Clearance Stated Complaint: REMOVAL OF PICC LINE Time Seen by Provider: 08/24/18 12:05 - HPI History of Present Illness: This is a 23-year-old female who presents to ED C she was sent to the ED by Dr. Sifuentes to have her made line removed. Patient has a mid PICC line located to the right brachial artery. Denies fevers/chills/nausea vomiting. - ROS Review of Systems: As noted in HPI - Exam Vital Signs: Vital Signs 08/24/18 12:05 Temperature 98.2 F Pulse Rate 67 Respiratory 16 Rate Blood Pressure 133/80 O2 Sat by Pulse 99 Oximetry Physical Exam: There is no bruising, ecchymosis, signs of any infection. PICC line was removed by nursing staff. MSE screening note: Focused history and physical exam performed. Due to findings the following was ordered: ED Medical Decision Making - Medical Decision Making 23-year-old female presents to ED one to removal of her peripheral PICC line PICC line nurse was activated and she had her PICC line removed. There was no bruising or ecchymosis or any signs of infection. Discussed the patient to follow-up with her primary care physician. Vital signs are normal ED Disposition for MSE Clinical Impression: PIC line (peripherally inserted central catheter) removal Disposition: - TO HOME OR SELFCARE Is pt being admited?: No Does the pt Need Aspirin: No Condition: Stable Instructions: Peripherally Inserted Central Catheters and Midline Catheters (ED) Additional Instructions: Make sure to follow up with the primary care physician as discussed. Take all your medications as you've been prescribed. If you have any worsening symptoms or develop new symptoms please return to ED immediately. Referrals: GUILLERMO HOUSTON MD [Primary Care Provider] - 3-5 Days Forms: Work/School Release Form(ED) Time of Disposition: 14:26
== END 2018-08-24 14:37 | disposition home or self-care (01) ==
LOC: ED 11:55
DX: T82.898A Other specified complication of vascular prosthetic devices, implants and grafts, initial encounter (principal); Z88.1 Allergy status to other antibiotic agents
CPT/HCPCS: 99282

== ENCOUNTER 2020-04-28 08:44 | Outpatient (CLI) | payer MEDICAID ==
[2020-04-28 09:39] LABS: Hematocrit 38.8 % (30.3-42.9); Hemoglobin 13.2 gm/dl (10.1-14.3); Mean Corpuscular HGB Conc 34 % (30-34); Mean Corpuscular Volume 97 fl (79-97); Platelet Count 202 K/mm3 (140-440); Red Blood Count 3.99 M/mm3 (3.65-5.03); Red Cell Distribution Width 12.8 % (13.2-15.2)
[2020-04-28 10:15] LABS: Alanine Aminotransferase 9 units/L (7-56); Albumin 4.4 g/dL (3.9-5); Blood Urea Nitrogen 12 mg/dL (7-17); Calcium 9.2 mg/dL (8.4-10.2); HDL Cholesterol 55 mg/dL (40-59); Hemolysis Index 5; LDL Cholesterol,Direct 92 mg/dL (50-130)
[2020-04-28 10:16] LABS: BUN/Creatinine Ratio 24
== END 2020-04-28 08:45 | disposition home or self-care (01) ==
LOC: LAB 08:44
PROVIDERS: ATTEND Internal Medicine
DX: J45.909 Unspecified asthma, uncomplicated (principal); D64.9 Anemia, unspecified; Z87.01 Personal history of pneumonia (recurrent)
CPT/HCPCS: 36415; 80053; 80061; 82785; 84436; 84443; 85027